=== PATIENT | male | born 2000 | race Hispanic/Latino ===

== ENCOUNTER 2023-02-01 15:40 | Emergency (ER) | payer SELFPAY ==
[~2023-02-01] VITALS: Ht 162.6 cm; Wt 62.6 kg
[2023-02-01 15:51] VITALS: BP 109/65
[2023-02-01 16:00] VITALS: BP 114/62
[2023-02-01 16:15] VITALS: BP 111/63
[2023-02-01 16:32] VITALS: BP 106/76
[2023-02-01 16:45] VITALS: BP 125/82
[2023-02-01 16:49] VITALS: BP 129/87
== END 2023-02-01 16:52 | disposition home or self-care (01) | DRG 603 ==
LOC: ED 15:40
DX: L03.011 Cellulitis of right finger (principal)